=== PATIENT | male | born 1970 | race Caucasian/White ===

== ENCOUNTER → 2023-06-20 10:58 | Outpatient (CLI) | payer OTHER, SELFPAY ==
[2023-06-20 19:38] LABS: Add Manual Diff / Slide Review NO; Basophils Absolute Auto 100 /uL (0-100); Basophils Percent Auto 0.8 % (0-2); Eosinophils Absolute Auto 100 /uL (0-450); Eosinophils Percent Auto 1.5 % (2-4); Hematocrit 45.5 % (41-53); Hemoglobin 15.3 g/dL (13.5-17.5); Lymphocytes Absolute Auto 1300 /uL (1100-4500); Lymphocytes Percent Auto 21.5 % (25-40); Mean Corpuscular HGB Conc 33.5 % (30-36); Mean Corpuscular Hemoglobin 29.8 PG (26-34); Mean Corpuscular Volume 88.9 fL (80-100); Monocytes Absolute Auto 500 /uL (0-900); Monocytes Percent Auto 7.8 % (3-14); Neutrophils Absolute Auto 4200 /uL (1500-7000); Neutrophils Percent Auto 68.4 % (50-75); Platelet Count 165 X10^3/uL (150-400); Red Blood Cell Count 5.12 X10^6/uL (4.5-5.9); Red Cell Distribution Width 13.5 % (11.6-14.8); White Blood Cell Count 6.1 X10^3/uL (4.5-11.0)
[2023-06-20 19:44] LABS: Alanine Aminotransferase 21 IU/L (<50); Albumin 4.3 g/dL (3.5-5.0); Albumin Globulin Ratio 1.7 (1.0-2.8); Alkaline Phosphatase 56 U/L (38-126); Aspartate Aminotransferase 33 IU/L (17-59); BUN Creatinine Ratio 11.8 (6-22); Bilirubin Total 0.8 mg/dL (0.2-1.3); Blood Urea Nitrogen 15 mg/dL (9-20); Calcium 9.1 mg/dL (8.4-10.2); Carbon Dioxide 28 mmol/L (22-32); Chloride 103 mmol/L (98-107); Cholesterol 177 mg/dL (140-199); Estimated Glomerular Filt Rate > 60 mL/min (>60); Globulin 2.5 g/dL (1.7-4.1); Glucose 92 mg/dL (70-100); HDL Cholesterol 55 mg/dL (40-60); HEMOLYSIS < 15 (0-50); LDL Cholesterol Calculated 109 mg/dL (<100); Potassium 4.5 mmol/L (3.4-5.1); Sodium 138 mmol/L (137-145); Total Protein 6.8 g/dL (6.3-8.2); Triglycerides 63 mg/dL (35-150)
== END ==
PROVIDERS: PCP Family Medicine; Visit Provider Family Medicine
DX: I10 Essential (primary) hypertension (principal); Z12.5 Encounter for screening for malignant neoplasm of prostate; Z13.1 Encounter for screening for diabetes mellitus; Z13.6 Encounter for screening for cardiovascular disorders; Z13.220 Encounter for screening for lipoid disorders
CPT/HCPCS: 80053; 80061; 85025; G0103

== ENCOUNTER 2024-12-17 08:47 | Emergency (ER) | payer OTHER, SELFPAY ==
[2024-12-17] VITALS (16 sets, daily range): BP systolic 157–207; BP diastolic 74–93; PULSE 43–68; RESP 16–26; TEMP 36.7; O2SAT 95–100; BMI 28.7
--- NOTE | 2024-12-17 09:07 | EKG_ITS ---
[address] [id number] [address] [address] Test Date: 2024-12-17 Pat Name: Elio Alexander Department: Room: Gender: Male Cover Marker: GRETEL : 1970 Requested By: Order Number: [id number] Reading MD: Yair Pacheco Measurements Intervals Verdi Rate: 45 P: 21 HI: 124 QRS: 6 QRSD: 92 T: 16 QT: 468 QTc: 404 Interpretive Statements Sinus bradycardia Electronically Signed On 12-17-2024 18:20:42 PST by Yair Pacheco
[2024-12-17] MEDS: ONDANSETRON 4 MG/2 ML INJ IV (09:15)
[2024-12-17] MEDS: KETOROLAC 30 MG/ML VIAL 15 MG IV (09:25)
[2024-12-17 09:26] LABS: Add Manual Diff / Slide Review NO; Basophils Absolute Auto 100 /uL (0-100); Basophils Percent Auto 0.4 % (0-2); Eosinophils Absolute Auto 0 /uL (0-450); Eosinophils Percent Auto 0.1 % (2-4); Hematocrit 48.2 % (41-53); Hemoglobin 16.3 g/dL (13.5-17.5); Lymphocytes Absolute Auto 1000 /uL (1100-4500); Lymphocytes Percent Auto 7.6 % (25-40); Mean Corpuscular HGB Conc 33.8 % (30-36); Mean Corpuscular Hemoglobin 29.8 PG (26-34); Mean Corpuscular Volume 88.3 fL (80-100); Monocytes Absolute Auto 700 /uL (0-900); Monocytes Percent Auto 5.4 % (3-14); Neutrophils Absolute Auto 11900 /uL (1500-7000); Neutrophils Percent Auto 86.5 % (50-75); Platelet Count 197 X10^3/uL (150-400); Red Blood Cell Count 5.46 X10^6/uL (4.5-5.9); Red Cell Distribution Width 13.3 % (11.6-14.8); White Blood Cell Count 13.7 X10^3/uL (4.5-11.0)
[2024-12-17] MEDS: SODIUM CHLORIDE 0.9% 1,000 ML 1000 ML IV (09:34)
[2024-12-17 09:37] LABS: Alanine Aminotransferase 31 IU/L (<50); Albumin 5.2 g/dL (3.5-5.0); Albumin Globulin Ratio 1.6 (1.0-2.8); Alkaline Phosphatase 58 U/L (38-126); Aspartate Aminotransferase 38 IU/L (17-59); BUN Creatinine Ratio 12.7 (6-22); Bilirubin Total 1.6 mg/dL (0.2-1.3); Blood Urea Nitrogen 20 mg/dL (9-20); Calcium 9.8 mg/dL (8.4-10.2); Carbon Dioxide 20 mmol/L (22-32); Chloride 101 mmol/L (98-107); Estimated Glomerular Filt Rate 52 mL/min (>60); Globulin 3.3 g/dL (1.7-4.1); Glucose 142 mg/dL (70-100); HEMOLYSIS < 15 (0-50); Lipase 95 U/L (23-300); Potassium 4.1 mmol/L (3.4-5.1); Sodium 137 mmol/L (137-145); Total Protein 8.5 g/dL (6.3-8.2)
--- NOTE | 2024-12-17 09:50 | ED_ITS ---
HPI - Abdominal Pain General Chief Complaint: Abdominal Pain Stated Complaint: abd pain Time Seen by Provider: 12/17/24 09:21 Source: patient and family Mode of arrival: Ambulatory History of Present Illness HPI narrative: Patient is a 54-year-old male without significant past medical history presenting to day with abdominal pain. He reports he has had pain all over for the past couple of days he has been dry heaving and nauseous. He thought he was going to be able to eat today so he tried but threw up again. No fever or chills no dizziness lightheadedness or passing out. He has had no prior abdominal surgeries. He thought he was constipated so he took some milk of magnesia and then had some diarrhea. Patient actually reports that he has had multiple waves of pain coming every 3-4 weeks. This time it seemed to just lasts a lot longer his last episode was around [place] time Related Data Previous Rx's Medication Instructions Recorded hydrocodone 5 mg-acetaminophen 325 1 tab PO Q6H PRN pain #10 tabs 12/17/24 mg tablet ondansetron 4 mg disintegrating 4 mg PO Q8H PRN nausea and 12/17/24 tablet vomiting #10 tabs Allergies Allergy/AdvReac Type Severity Reaction Status Date / Time No Known Drug Allergies Allergy Verified 12/17/24 09:01 Patient History Surgical History Anesthesia History of inguinal hernia repair (~1987) History of knee surgery (~2004) Family History Father Cancer Diabetes mellitus Mother History of heart disease Grandfather History of heart disease Grandfather Stroke Grandmother Diabetes mellitus Social History Smoking Status: Former smoker Smoking Status: Former smoker Alcohol type: beer and hard liquor Exam Initial Vital Signs Initial Vital Signs: Vital Signs Temperature 98.0 F 12/17/24 08:55 Pulse Rate 47 L 12/17/24 08:55 Respiratory Rate 16 12/17/24 08:55 Blood Pressure 182/87 H 12/17/24 08:55 Pulse Oximetry 98 12/17/24 08:55 Oxygen Delivery Method Room Air 12/17/24 08:55 GENERAL: Alert 54-year-old male appears to not feel well and in no acute distress. HEENT: Head atraumatic,EOMI, pupils reactive, face symmetric, dry mucous membranes CARDIOVASCULAR: Regular rate and rhythm without murmurs, rubs or gallops. RESPIRATORY: Breath sounds equal bilaterally, no wheezes rales or rhonchi. ABDOMEN: Soft, minimal distention normal bowel sounds diffusely tender no guarding or rebound : No CVA tenderness EXTREMITIES: Normal range of motion, no clubbing or edema. Neurovascularly intact NEUROLOGICAL: Alert and oriented x4.Normal gait and speech. Cranial nerves II through XII grossly intact. SKIN: Warm, dry, no laceration, no petechiae, no rashes or lesions. Course Orders Ordered: ED Orders 12/17/24 09:49 CT abdomen pelvis w con Stat 12/17/24 14:07 Urine Microscopic Stat Discontinued Medications Diphenhydramine HCl (Diphenhydramine 50 Mg/Ml Vial) 25 mg IV NOW ONE Stop: 12/17/24 10:03 Last Admin: 12/17/24 10:06 Dose: 25 mg Documented By: SHERMAN Hydromorphone HCl (Hydromorphone 0.5 Mg Inj) 0.5 mg IV NOW ONE Stop: 12/17/24 09:50 Last Admin: 12/17/24 12:01 Dose: 0.5 mg Documented By: CHE Sodium Chloride (Normal Saline 0.9%) 1,000 mls @ 1,000 mls/hr IV BOLUS ONE Stop: 12/17/24 10:20 Last Infusion: 12/17/24 11:13 Dose: Infused Documented By: Admin: 12/17/24 09:34 Dose: 1,000 mls/hr Documented By: SHERMAN Ketorolac Tromethamine (Ketorolac 30 Mg/Ml Vial) 15 mg IV NOW ONE Stop: 12/17/24 09:22 Last Admin: 12/17/24 09:25 Dose: 15 mg Documented By: SHERMAN Magnesium Citrate (Magnesium Citrate 300 Ml Solution) 300 ml PO NOW ONE Stop: 12/17/24 11:19 Last Admin: 12/17/24 11:51 Dose: 300 ml Documented By: CHE Methylprednisolone (Methylprednisolone 125 Mg/2 Ml Vial) 125 mg IV NOW ONE Stop: 12/17/24 10:03 Last Admin: 12/17/24 10:08 Dose: 125 mg Documented By: SHERMAN Metoclopramide HCl (Metoclopramide 10 Mg/2 Ml Inj) 10 mg IV NOW ONE Stop: 12/17/24 11:25 Last Admin: 12/17/24 11:51 Dose: 10 mg Documented By: CHE Ondansetron HCl (Ondansetron 4 Mg/2 Ml Inj) 4 mg IV NOW PRN PRN Reason: Nausea And Vomiting Last Admin: 12/17/24 09:15 Dose: 4 mg Documented By: SHERMAN Ondansetron HCl (Ondansetron 4 Mg Odt) 4 mg PO NOW PRN PRN Reason: Nausea And Vomiting Vital Signs Vital signs: Vital Signs - 8 hr 12/17/24 10:30 12/17/24 10:30 12/17/24 11:00 Pulse Rate 51 L 49 L Respiratory Rate 19 20 Blood Pressure 175/87 H Pulse Oximetry 95 98 12/17/24 11:00 12/17/24 11:30 12/17/24 11:31 Pulse Rate 53 L 57 L Respiratory Rate 26 H 26 H Blood Pressure 197/84 H Pulse Oximetry 98 98 12/17/24 11:31 12/17/24 12:00 12/17/24 12:01 Pulse Rate 66 60 Respiratory Rate 24 25 H Blood Pressure 171/89 H Pulse Oximetry 100 100 12/17/24 12:01 12/17/24 12:20 12/17/24 12:20 Pulse Rate 63 Respiratory Rate 18 Blood Pressure 207/91 H 175/93 H Pulse Oximetry 95 12/17/24 12:30 12/17/24 12:30 12/17/24 13:00 Pulse Rate 61 60 Respiratory Rate 18 20 Blood Pressure 167/86 H Pulse Oximetry 95 97 12/17/24 13:00 12/17/24 13:30 12/17/24 13:30 Pulse Rate 56 L Respiratory Rate 21 Blood Pressure 160/84 H 169/80 H Pulse Oximetry 98 MDM - Abdominal Pain Lab Data 12/17/24 09:15 12/17/24 09:15 Labs: Lab Results 12/17/24 12/17/24 Range/Units 09:15 14:07 WBC 13.7 H (4.5-11.0) X10^3/uL RBC 5.46 (4.5-5.9) X10^6/uL Hgb 16.3 (13.5-17.5) g/dL Hct 48.2 (41-53) % MCV 88.3 (80-100) fL MCH 29.8 (26-34) PG MCHC 33.8 (30-36) % RDW 13.3 (11.6-14.8) % Plt Count 197 (150-400) X10^3/uL Neut % (Auto) 86.5 H (50-75) % Lymph % (Auto) 7.6 L (25-40) % Jack % (Auto) 5.4 (3-14) % Eos % (Auto) 0.1 L (2-4) % Baso % (Auto) 0.4 (0-2) % Neut # (Auto) 62173 H (6561-8567) /uL Lymph # (Auto) 1000 L (8195-2670) /uL Jack # (Auto) 700 (0-900) /uL Eos # (Auto) 0 (0-450) /uL Baso # (Auto) 100 (0-100) /uL Sodium 137 (137-145) mmol/L Potassium 4.1 (3.4-5.1) mmol/L Chloride 101 (98-107) mmol/L Carbon Dioxide 20 L (22-32) mmol/L BUN 20 (9-20) mg/dL Creatinine 1.57 H (0.66-1.25) mg/dL Estimated GFR 52 L (>60) mL/min BUN/Creatinine Ratio 12.7 (6-22) Glucose 142 H (70-100) mg/dL Lactate 1.6 (0.7-2.1) mmol/L Calcium 9.8 (8.4-10.2) mg/dL Total Bilirubin 1.6 H (0.2-1.3) mg/dL AST 38 (17-59) IU/L ALT 31 (<50) IU/L Alkaline Phosphatase 58 (38-126) U/L Total Protein 8.5 H (6.3-8.2) g/dL Albumin 5.2 H (3.5-5.0) g/dL Globulin 3.3 (1.7-4.1) g/dL Albumin/Globulin Ratio 1.6 (1.0-2.8) Lipase 95 (23-300) U/L Urine RBC 1-5/hpf (0-5/HPF) Urine WBC None seen (0-5/HPF) Ur Squamous Epith Cells None seen (0-5/HPF) Urine Bacteria None seen (None) Ur Culture Indicated? Cult not indicated Vol Urine Centrifuged 10ml (spun) Point of care testing: Urine Dip Bedside Urine Glucose Negative Bedside Urine Bilirubin - Negative Bedside Urine Ketone +++ 80 Urine Specific [place] 1.02 Bedside Urine Occult Blood +/- Bedside Urine pH 5.0 Bedside Urine Protein +/- 15 Bedside Urine Urobilinogen - Negative Bedside Urine Nitrite - Negative Bedside Urine Leukocytes - Negative Esterase Imaging Data CT scan - abdomen/pelvis: Radiologist's Impression: PROCEDURE: CT ABDOMEN PELVIS W CON INDICATIONS: ab pain TECHNIQUE: After the administration of intravenous contrast, axial sections acquired from the lung bases to the pubic symphysis. Coronal and sagittal reformats were performed. For radiation dose reduction, the following was used: automated exposure control, adjustment of mA and/or kV according to patient size. COMPARISON: None. FINDINGS: Image quality: Diagnostic. Lower Chest: No significant findings. ABDOMEN: Liver: No solid mass. Mild diffuse hepatic steatosis with focal fatty sparing subjacent to the gallbladder fossa. Focal fatty sparing gives a masslike appearance. For instance, reference images 41 through 52. Gallbladder: No radiopaque gallstones or wall thickening. Biliary ducts: No biliary dilation. Pancreas: No ductal dilation. Spleen: Size is within normal limits. Adrenal Glands: No adrenal nodules. Kidneys and Ureters: No hydronephrosis. No solid mass. No complex renal cystic lesion which requires follow up. 1 mm nonobstructing punctate left renal stone. Reference coronal image 67 of series 3. Stomach and Bowel: Normal colonic caliber, without significant wall thickening. There is mild dilatation of the proximal jejunum, measuring approximately 3.7 cm in maximum diameter. There is no transition point. Findings may represent mild ileus. Normal gas-filled appendix. Peritoneum: No abnormal intraperitoneal fluid. No free air. Ventral Wall: No significant ventral hernia. Abdominal Nodes: No retroperitoneal or mesenteric adenopathy by size criteria. Vessels: Aorta and inferior vena cava are normal in size. PELVIS: Pelvic Organs: Unremarkable. Bladder: No bladder wall thickening, accounting for underdistention. Pelvic Nodes: No enlarged lymph nodes. Miscellaneous: Fat containing bilateral inguinal hernias versus treated fat containing bilateral inguinal hernias are seen. Bones: No aggressive osseous abnormality. IMPRESSION: 1. Question ileus pattern. 2. Normal appendix. 3. Mild diffuse hepatic steatosis with prominent fatty sparing subjacent to the gallbladder. 4. Bilateral fat containing inguinal hernias versus treated fat containing inguinal hernias. Dictated by: Chance Zuñiga M.D. on 12/17/2024 at 10:20 ECG Data Attestation: I personally reviewed and interpreted this ECG as follows: Prior ECG tracings: not available for review Interpretation: Normal sinus rhythm rate 45 HI interval 124 QRS [address] changes MDM Narrative Medical decision making narrative: MDM CC: Abdominal pain Complicating co-morbidities: Healthy male Medical records reviewed: None Differential considered: Bowel obstruction diverticulitis gastroenteritis ischemia, pancreatitis cholelithiasis nephrolithiasis Exam documented above, pertinent findings include: Diffusely tender abdomen no guarding or rebound Lab Test results independently reviewed as above. Pertinent findings: Leukocytosis 13 Bicarb 20, BUN 20 creatinine 1.57 previously 1.27 Liver enzymes within normal limits Lipase 95 Independently reviewed EKG as above Sinus bradycardia no ischemia Imaging studies independently reviewed: CT shows questionable ileus Consultations: Dr. Sanchez, surgery updated on patient's symptoms test results recommend supportive care only Treatments: Toradol, Dilaudid, Zofran, Solu-Medrol and Benadryl, magnesium citrate Re-evaluations: 10:05 patient had facial flushing after IV contrast, given Benadryl and Solu- Medrol Patient continues to have pain that comes and goes Discussion: 54-year-old male presents today with pretty severe abdominal pain it sounds as though he has had this pain off and on and has episodes of it. He previously had a colonoscopy a few years back which he said was normal. Today CT shows a probable ileus he was mild leukocytosis of 13. Once he received pain medications he was able to relax. He continues to pass gas but has not had a bowel movement. He was given magnesium citrate here in the emergency department. Encouraged p.o. intake ambulation Discharge Plan Departure Patient Disposition: Home Clinical Impression: Ileus Instructions: Ileus Activity Restrictions/Additional Instructions: *You have been diagnosed with ileus *What to do: At this time increase activity walking help stimulate the gut. Increase food and diet as tolerated recommend staying hydrated with Gatorade Pedialyte or liquid IV. *Continue to take medications as directed Zofran 4 mg every 8 hours for nausea or vomiting [place] 1 tablet every 4-6 hours if needed for severe pain Maalox, milk of magnesia, senna, Colace-these are all found [id number] to help with bowel movements please take this especially while taking [place] *Follow up with your primary care provider in 2-3 days or call [phone] I do recommend that you follow-up with GI *Return to ER if you should have increasing abdominal pain persistent vomiting not tolerating medication or or any new, worsening or concerning symptoms CONTROLLED SUBSTANCE DISCHARGE (Narcotoic/benzodiazepine/Flexeril/Phenergan) 1. You have been prescribed narcotic medications, it does have acetaminophen/Tylenol/paracetamol in it, DO NOT TAKE MORE THAN 4,00mg in 24 hours of Tylenol. TRAMADOL DOES NOT CONTAIN TYLENOL 2. Please understand that we cannot provide further refills of narcotics, benzodiazepines or controlled substances through the ED and her pain management will need to be through your provider. 3. While on these medications you cannot drive or operate heavy machinery. 4. You cannot sign legal documents or perform any duties such as this. 5. As long as you're taking opiate pain medications he should also be taking a stool softener such as Colace, Dulcolax, MiraLAX or prune juice, to help avoid constipation. Prescriptions: New hydrocodone-acetaminophen 5-325 mg tablet 1 tab PO Q6H PRN (Reason: pain) Qty: 10 0RF ondansetron 4 mg tablet,disintegrating 4 mg PO Q8H PRN (Reason: nausea and vomiting) Qty: 10 0RF Referrals: Yon Payne MD [Primary Care Provider] - Stand Alone Forms: Patient Portal/API/Survey
[2024-12-17] MEDS: diphenhydrAMINE 50 MG/ML VIAL 25 MG IV (10:06)
[2024-12-17 10:07] LABS: Lactate (Lactic Acid) 1.6 mmol/L (0.7-2.1)
[2024-12-17] MEDS: methylPREDNISolone 125 MG/2 ML VIAL IV (10:08)
--- NOTE | 2024-12-17 10:10 | PC.NURSE ---
Pt taken to CT for abdominal scan with contrast. Immediately after receiving contrast pt started sneezing and felt itchiness on his face. Then itching spread to bilateral knees. Pt describes feeling all the pulses in his extremities. Airway is maintained and pt denies throat or tongue swelling. I notified Dr. Acuna and medications given to pt (see MAR). @ 1012 Pt now resting in bed states feeling less itchy. Continues to deny swollen tongue/throat.
[2024-12-17] MEDS: MAGNESIUM CITRATE 300 ML SOLUTION PO (11:51)
[2024-12-17] MEDS: METOCLOPRAMIDE 10 MG/2 ML INJ IV (11:51)
[2024-12-17] MEDS: HYDROMORPHONE 0.5 MG INJ IV (12:01)
[2024-12-17 14:19] LABS: Urine Volume 10mL (spun)
[2024-12-17 14:24] LABS: Bacteria Urine None Seen; RBC Urine 1-5/HPF (0-5/HPF); WBC Urine None Seen (0-5/HPF)
[2024-12-17 14:25] LABS: Culture Indicated Urine Cult Not Indicated; Squamous Epithelial Cell Urine None Seen (0-5/HPF)
== END 2024-12-17 14:25 | disposition home or self-care (01) ==
PROVIDERS: Emergency Provider Emergency Medicine; PCP Family Medicine
DX: K56.7 Ileus, unspecified (principal); R11.2 Nausea with vomiting, unspecified; Z87.891 Personal history of nicotine dependence; R10.9 Unspecified abdominal pain
CPT/HCPCS: 36415; 74177; 80053; 81003; 81015; 83605; 83690; 85025; 93005; 96361; 96374; 96375; 99284; J1171; J1200; J1885; J2405; J2765; J2919; Q9967

== ENCOUNTER → 2024-12-28 10:47 | Outpatient (CLI) | payer OTHER, SELFPAY ==
[2024-12-28 18:54] LABS: Add Manual Diff / Slide Review NO; Basophils Absolute Auto 100 /uL (0-100); Basophils Percent Auto 0.8 % (0-2); Eosinophils Absolute Auto 200 /uL (0-450); Eosinophils Percent Auto 2.7 % (2-4); Hematocrit 47.6 % (41-53); Hemoglobin 15.7 g/dL (13.5-17.5); Lymphocytes Absolute Auto 1100 /uL (1100-4500); Lymphocytes Percent Auto 16.5 % (25-40); Mean Corpuscular HGB Conc 33.1 % (30-36); Mean Corpuscular Hemoglobin 29.8 PG (26-34); Mean Corpuscular Volume 90.1 fL (80-100); Monocytes Absolute Auto 400 /uL (0-900); Monocytes Percent Auto 6.6 % (3-14); Neutrophils Absolute Auto 4800 /uL (1500-7000); Neutrophils Percent Auto 73.4 % (50-75); Platelet Count 272 X10^3/uL (150-400); Red Blood Cell Count 5.28 X10^6/uL (4.5-5.9); Red Cell Distribution Width 12.9 % (11.6-14.8); White Blood Cell Count 6.6 X10^3/uL (4.5-11.0)
[2024-12-28 19:23] LABS: Alanine Aminotransferase 23 IU/L (<50); Albumin 4.5 g/dL (3.5-5.0); Albumin Globulin Ratio 1.7 (1.0-2.8); Alkaline Phosphatase 51 U/L (38-126); Aspartate Aminotransferase 27 IU/L (17-59); BUN Creatinine Ratio 10.9 (6-22); Bilirubin Total 0.7 mg/dL (0.2-1.3); Blood Urea Nitrogen 14 mg/dL (9-20); Calcium 9.4 mg/dL (8.4-10.2); Carbon Dioxide 24 mmol/L (22-32); Chloride 103 mmol/L (98-107); Estimated Glomerular Filt Rate > 60 mL/min (>60); Globulin 2.7 g/dL (1.7-4.1); Glucose 98 mg/dL (70-100); HEMOLYSIS < 15 (0-50); Potassium 4.4 mmol/L (3.4-5.1); Sodium 135 mmol/L (137-145); Total Protein 7.2 g/dL (6.3-8.2)
[2024-12-28 19:48] LABS: TSH w/ Reflex to FT4 1.72 uIU/mL (0.47-4.68)
[2024-12-28 19:53] LABS: Prostate Specific Antigen Scrn 0.296 ng/mL (0.1-4.0)
[2024-12-28 20:07] LABS: Vitamin B12 398 pg/mL (239-931)
[2024-12-28 20:45] LABS: Hemoglobin A1C% w Est Avg Glu 5.6 % (4.0-6.0)
== END ==
PROVIDERS: PCP Family Medicine; Visit Provider Family Medicine
DX: Z12.5 Encounter for screening for malignant neoplasm of prostate (principal); R10.9 Unspecified abdominal pain; K56.7 Ileus, unspecified; I10 Essential (primary) hypertension; Z98.890 Other specified postprocedural states; Z87.19 Personal history of other diseases of the digestive system; K59.00 Constipation, unspecified; R79.89 Other specified abnormal findings of blood chemistry
CPT/HCPCS: 80053; 82607; 83036; 84443; 85025; G0103

== ENCOUNTER → 2025-01-15 08:15 | Outpatient (CLI) | payer OTHER, SELFPAY ==
[2025-01-21 16:36] LABS: Calprotectin, Stool 18 ug/g (0-120)
== END ==
PROVIDERS: PCP Family Medicine; Visit Provider Family Medicine
DX: R10.9 Unspecified abdominal pain (principal); K56.7 Ileus, unspecified
CPT/HCPCS: 83993; 87045

== ENCOUNTER → 2025-01-16 10:29 | Outpatient (CLI) | payer OTHER, SELFPAY ==
[2025-01-16 19:34] LABS: Cholesterol 178 mg/dL (140-199); HDL Cholesterol 48 mg/dL (40-60); LDL Cholesterol Calculated 106 mg/dL (<100); Triglycerides 121 mg/dL (35-150)
== END ==
PROVIDERS: PCP Family Medicine; Visit Provider Family Medicine
DX: Z13.220 Encounter for screening for lipoid disorders (principal)
CPT/HCPCS: 80061

== ENCOUNTER 2025-02-25 07:08 | Day surgery (SDC) | payer OTHER, SELFPAY ==
[2025-02-25] VITALS (7 sets, daily range): BP systolic 84–132; BP diastolic 51–84; PULSE 65–73; RESP 12–18; TEMP 36.1–36.8; O2SAT 96–100
--- NOTE | 2025-02-25 | PATH_ITS ---
[facility] Accession Number: [id number] No. of containers..01 Tissue . 01 Material submitted: . colon - SPLENIC POLYP . 01 Diagnosis: SPLENIC FLEXURE POLYP: Colonic mucosa with no evidence of neoplasm, consistent with polypoid redundancy. Negative for serrated lesion, dysplasia, or malignancy. Additional step sections examined. MRV 02/27/2025 1409 Local . 01 Electronically signed: . Norberto Vilchis MD, PhD, Pathologist NPI- [id number] . 01 Gross description: . SPLENIC POLYP: Received in formalin is 1 fragment(s) of morgan, soft tissue measuring 0.3 x 0.2 x 0.2 cm submitted entirely in 1 cassette(s) /BELL 02/25/2025 2326 Local . 01 Pathologist provided ICD-10: K63.5 . 01 CPT . 408641 Specimen Comment: A courtesy copy of this report has been sent to [phone] Performed at: [address] [facility] [address], [place], [place] [id number] MD Zurdo Serrano MD Phone: [phone]
[2025-02-25] MEDS: LACTATED RINGERS 1,000 ML 42 ML IV (07:21)
--- NOTE | 2025-02-25 08:23 | P.HP_ITS ---
History of Present Illness History of Present Illness Date Patient Seen: 02/25/25 Chief complaint: [facility] Medical History (Updated 02/25/25 @ 07:35 by Mona Potts RN) Constipation Hypertension Surgical History (Updated 12/20/24 @ 07:28 by Yon Payne MD) Anesthesia History of inguinal hernia repair (~1987) History of knee surgery (~2004) Family History Father Cancer Diabetes mellitus Mother History of heart disease Grandfather History of heart disease Grandfather Stroke Grandmother Diabetes mellitus Social History Smoking Status: Former smoker alcohol intake: current Meds Home Medications and Allergies Home Medications Medication Instructions Recorded Confirmed Type lisinopril 10 1 tab PO DAILY #90 tabs 12/20/24 02/25/25 Rx mg-hydrochlorothiazide 12.5 mg tablet Allergies Allergy/AdvReac Type Severity Reaction Status Date / Time No Known Drug Allergies Allergy Verified 02/25/25 07:21 Exam Vital Signs (past 8 hours): - 02/25/25 07:25 Temperature 96.9 F L Pulse Rate 68 Respiratory Rate 18 Blood Pressure 132/84 Pulse Oximetry 100 Oxygen Delivery Method Room Air Oxygen Delivery Method Room Air Narrative Exam Narrative: Oropharynx free of lesions Chest clear to auscultation percussion Cardiac exam reveals no S3 or murmur Assessment & Plan Assessment & Plan narrative: History of severe constipation need for colorectal cancer screening. Risks, benefits, alternatives have been explained. Time-Based Coding :: [TOTAL MINUTES] spent with patient and on the chart (including review of chart, obtaining history, exam, reviewing outside data, placing orders, documenting exam and treatment plan, and counseling patient) on [DATE]. PROFEE Q[employer] Developer Document charge(s): No
--- NOTE | 2025-02-25 08:24 | PM.OP.COLON ---
Operative Date/Time/Diagnoses Date of procedure: 02/25/25 Pre-op diagnosis: See indication and findings Procedure & Clinicians Study performed: Colonoscopy Same procedure as scheduled: Yes Indications: Screening with bouts of severe constipation Surgeon: Marian Aquino Procedure Notes Procedure in detail: After informed consent was obtained the patient was placed in left lateral decubitus position. The video colonoscope was introduced the rectum slowly advanced cecum. Preparation was good. On slow withdrawal mucosa was carefully examined. The scope was removed. The patient tolerated procedure well. Blood loss none Complications none Sedation mac Findings 1. 3 mm polyp in the splenic flexure Jumbo biopsy removed completely 2. Otherwise negative colonoscopy to cecum Patient should have follow-up colonoscopy in 10 years. He should continue his fiber supplements
== END 2025-02-25 09:23 | disposition home or self-care (01) ==
PROVIDERS: PCP Family Medicine; Referring Provider Internal Medicine Gastroenterology; Visit Provider Internal Medicine Gastroenterology
PROC: 0DJD8ZZ Inspection of Lower Intestinal Tract, Via Natural or Artificial Opening Endoscopic (ICD-10-PCS; CPT 45378; principal; 2025-02-25 08:30)
DX: Z12.11 Encounter for screening for malignant neoplasm of colon (principal); Z87.891 Personal history of nicotine dependence; K59.00 Constipation, unspecified; K63.5 Polyp of colon
CPT/HCPCS: 45380; J2704